=== PATIENT | female | born 1990 ===

== ENCOUNTER 2018-12-08 14:25 | Emergency (ER) | payer BC, MEDICAID ==
--- NOTE | 2018-12-08 15:15 | OBHP ---
Datetime: 12/08/2018 14:56 IP Adm Impression: , intrauterine ; No Active Labor IP Admit Plan: Discharge home Admit Comment, IP Provider: This is a private patient of Dr. phyllis Peters 29y.o. , LMP 04/15/18, CHOLO 01/20/19, EGA 33w 6d, c/o decreased movement since 0800 hours. Patient admits to eating and drnking, and "I even had some sweets". Denies LOF, VB, Ctx/abdominal mariela n/tightness/pressure. NB: as soon as patient was placed on the FHR monitor, reported the baby was moving as usual. care: Dr. Peters. Vit D insufficiency P Ob: primip P [employer]: 13 x monthly x 4 PMH: denies PSH: denies NKDA Meds: PNV and Vit D - once a day Soc Hx: denies tobacco, illicit drug or EtOH use. x 4 years. Works as an IT developer Fam Hx: Mother alive 50 y.o. Father alive 60 y.o. - both, no med issues. P.E.: as above. WD in AD. Awake, alert, oriented to time, person and place. Pleasant and cooperati ve. and other support person present Assessment: 29 y.o. P0, 33w 6d, decreased movement - resolved. Patient now reports good FM. Category 1 tracing. Patient is clinically stable. Plan: 1) Discharge home 2) Reviewed S/S PTL 3) Keep appointment with Dr. Peters, 12/09/18 4) Continue all meds/ supplements - as per Dr. Peters Pelvic Type - PN: Not Done Extremities - PN: Normal Abdomen - PN: Normal Back - PN: Normal Breast - PN: Not Done Lungs - PN: Normal Heart - PN: Normal Thyroid - PN: Not Done Neurologic - PN: Normal HEENT - PN: Normal General - PN: Normal FHR - Baseline A Provider: [id number] Contraction Comments Provider: none Comments, ACOG Physical Exam: Abdomen: Gravid. Soft. Non tender in all quadrants. All other systems reviewed and are negative Gestation - Est Wks by US: 33w 6d EGA AdmitDate IP: 33.6 IP Chief Complaint: Decreased movement NICHD Variability Prov Fetus A: Moderate 6-25bpm NICHD Accel Fetus A IP Provider: [id number] FHR Category Provider Fetus A: Category I NICHD Decel Fetus A IP Provider: None Dilatation, Provider: deferred Genitourinary Exam: Not Done DTRs - PN: Not Done
[2018-12-08 20:25] VITALS: BP 102/74; PULSE 86
== END 2018-12-08 15:30 | disposition home or self-care (01) ==
LOC: C.EROB 14:42
DX: O36.8130 Decreased fetal movements, third trimester, not applicable or unspecified (principal); Z3A.33 33 weeks gestation of pregnancy